=== PATIENT | female | born 1995 | race Caucasian/White ===

== ENCOUNTER 2016-11-02 18:50 | Emergency (ER) | payer OTHER ==
[~2016-11-02] VITALS: Ht 160 cm; Wt 63.8 kg
[~2016-11-02 18:50] MED LIST: AMOXICILLIN875 MG PO; BENZONATATE100 MG PO; CYCLOBENZAPRINE10 MG PO; FLEXERIL10 MG PO; KEFLEX500 MG PO; LORATADINE10 M2 PO; MACROBID100 MG PO; MEDROL DOSEPAK4 MG PO; MOTRIN400 MG PO; NAPROSYN500 MG PO; NORCO 5/3251 TABLET PO; PROAIR HFA8.5 GM IH; TESSALON200 MG PO; ZARAH TABLET1 EACH PO; ZOFRAN ODT4 MG PO
[2016-11-02 20:02] LABS: ADD MIUA? NO; BILIRUBIN NEGATIVE; BLOOD NEGATIVE; GLUCOSE (STRIP) NEGATIVE; KETONES NEGATIVE; LEUKOCYTES NEGATIVE; NITRITE NEGATIVE; PROTEIN (STRIP) NEGATIVE; SPECIFIC GRAVITY 1.028 (1.000-1.030); UROBILINOGEN 0.2 MG/DL (0.2-1.0)
[2016-11-02 20:03] LABS: COLOR YELLOW ((YELLOW))
[2016-11-02] MEDS ORDERED: NAPROSYN500 MG PO (21:54)
[2016-11-02] MEDS ORDERED: ULTRAM50 MG PO (21:54)
[2016-11-02] MEDS ORDERED: FLEXERIL10 MG PO (21:54)
[2016-11-02 22:04] VITALS: BP 123/61
== END 2016-11-02 22:13 | disposition home or self-care (01) ==
LOC: EME 18:50
PROVIDERS: Nurse Practitioner Family
DX: M54.5 Low back pain (principal); M62.830 Muscle spasm of back; M54.6 Pain in thoracic spine; Z87.81 Personal history of (healed) traumatic fracture
CPT/HCPCS: 72070; 72100; 81003; 99281; 99284